=== PATIENT | female | born 1995 | race Two or more races ===

== ENCOUNTER 2018-05-12 15:23 | Emergency (ER) | payer OTHER ==
[~2018-05-12] VITALS: Ht 167.6 cm; Wt 82.8 kg
[2018-05-12] MEDS: ALBUTEROL SULFATE 2.5 MG/3 ML NEBU. NEB ONE (16:21)
[2018-05-12 16:23] LABS: BASO % 0 % (0-3); EOS # 0.2 x10^3/uL (0.0-0.7); EOS % 2 % (0-3); HEMATOCRIT 32.3 % (36.0-47.0); HEMOGLOBIN 10.9 g/dL (12.0-15.5); LYMPH # 1.6 x10^3/uL (1.0-4.8); LYMPH % 16 % (24-48); MEAN CORPUSCULAR HEMOGLOBIN 28 pg (25-35); MEAN CORPUSCULAR HGB CONC 34 g/dL (31-37); MEAN CORPUSCULAR VOLUME 83 fL (79-100); MONO # 0.7 x10^3/uL (0.0-1.1); MONO % 7 % (0-9); NEUT # 7.3 x10^3uL (1.8-7.7); NEUT % 75 % (31-73); PLATELET COUNT 403 x10^3/uL (140-400); RED BLOOD COUNT 3.89 x10^6/uL (3.50-5.40); RED CELL DISTRIBUTION WIDTH 14.5 % (11.5-14.5); WHITE BLOOD COUNT 9.7 x10^3/uL (4.0-11.0)
--- NOTE | 2018-05-12 16:28 | PHYS DOC ---
Past History Past Medical History: Asthma, Other Past Surgical History: No Surgical History Alcohol Use: None Drug Use: None Adult General Chief Complaint Chief Complaint: CHEST PAIN IN HPI HPI Patient is a 23 year old female who presents with complaining of chest pain. Patient is at 24 weeks of gestation and complaining of intermittent episodes of substernal chest pain for about 7 months before she even got . Patient states she gets episodes of substernal chest pain with radiation to right lateral chest as a constant sharp pain that last about one or 2 days and associated with shortness of breath and usually happen once a week or every other week. Patient was seen at [facility] for this chest pain and had unremarkable chest x-ray and was told this related to her asthma but patient believes that she has some other problem. She denies history of DVT and PE and lower extremity pain, fever and chills, vomiting and diarrhea. Patient states she mentioned about her chest pain to her [employer]CR[employer] and was told that is related to anemia. Review of Systems Review of Systems Constitutional: Denies fever or chills [] Eyes: Denies change in visual acuity, redness, or eye pain [] HENT: Denies nasal congestion or sore throat [] Respiratory: Reports shortness of breath [] Cardiovascular: No additional information not addressed in HPI [] GI: Denies abdominal pain, nausea, vomiting, bloody stools or diarrhea [] : Denies dysuria or hematuria [] Musculoskeletal: Denies back pain or joint pain [] Integument: Denies rash or skin lesions [] Neurologic: Denies headache, focal weakness or sensory changes [] Endocrine: Denies polyuria or polydipsia [] All other systems were reviewed and found to be within normal limits, except as documented in this note. Current Medications Current Medications Current Medications Medications (Trade) Dose Ordered Sig/Alberto Start Time Stop Time Status Last Admin Dose Admin Albuterol Sulfate (Ventolin) 2.5 mg 1X ONCE 05/12/18 16:00 05/12/18 16:02 DC 05/12/18 16:21 2.5 MG Allergies Allergies Allergies Coded Allergies Type Severity Reaction Last Updated Verified aspirin Allergy Unknown 05/12/18 Yes cinnamon Allergy Unknown 05/12/18 Yes pineapple Allergy Unknown 05/12/18 Yes Physical Exam Physical Exam Constitutional: Well developed, well nourished, mild distress, non-toxic appearance. [] HENT: Normocephalic, atraumatic, oropharynx moist, no oral exudates, nose normal. [] Eyes: PERRLA, EOMI, conjunctiva normal, no discharge. [] Neck: Normal range of motion, no tenderness, supple, no stridor. [] Cardiovascular:Heart rate regular rhythm, no murmur [] Lungs & Thorax: Bilateral breath sounds clear to auscultation [] Abdomen: Bowel sounds normal, soft, no tenderness, no masses, no pulsatile masses, gravid abdomen, heart rate 142, no tenderness. [] Skin: Warm, dry, no erythema, no rash. [] Back: No tenderness, no CVA tenderness. [] Extremities: No tenderness, no cyanosis, no clubbing, ROM intact, no edema. [] Neurologic: Alert and oriented X 3, normal motor function, normal sensory function, no focal deficits noted. [] Psychologic: Affect normal, judgement normal, mood normal. [] Current Patient Data Vital Signs Vital Signs Date Time Temp Pulse Resp B/P (MAP) Pulse Ox O2 Delivery O2 Flow Rate FiO2 05/12/18 15:36 98.8 91 18 99 Room Air Lab Results Laboratory Tests Test 05/12/18 16:04 White Blood Count 9.7 x10^3/uL (4.0-11.0) Red Blood Count 3.89 x10^6/uL (3.50-5.40) Hemoglobin 10.9 g/dL (12.0-15.5) L Hematocrit 32.3 % (36.0-47.0) L Mean Corpuscular Volume 83 fL (79-100) Mean Corpuscular Hemoglobin 28 pg (25-35) Mean Corpuscular Hemoglobin Concent 34 g/dL (31-37) Red Cell Distribution Width 14.5 % (11.5-14.5) Platelet Count 403 x10^3/uL (140-400) H Neutrophils (%) (Auto) 75 % (31-73) H Lymphocytes (%) (Auto) 16 % (24-48) L Monocytes (%) (Auto) 7 % (0-9) Eosinophils (%) (Auto) 2 % (0-3) Basophils (%) (Auto) 0 % (0-3) Neutrophils # (Auto) 7.3 x10^3uL (1.8-7.7) Lymphocytes # (Auto) 1.6 x10^3/uL (1.0-4.8) Monocytes # (Auto) 0.7 x10^3/uL (0.0-1.1) Eosinophils # (Auto) 0.2 x10^3/uL (0.0-0.7) Basophils # (Auto) 0.0 x10^3/uL (0.0-0.2) EKG EKG EKG interpreted by me. EKG at 1555 showed normal sinus rhythm at rate of 96, no acute ST and T-wave abnormalities.[] Radiology/Procedures Radiology/Procedures [] Impressions: MPRESSION: 1. Biliary sludge, possibly with a mild component of cholelithiasis. No sonographic evidence of acute cholecystitis. 2. The pancreas is obscured currently. Course & Med Decision Making Course & Med Decision Making Pertinent Labs and Imaging studies reviewed. (See chart for details) Evaluation of patient in ER showed 23-year-old female patient with complaining of episodes of sternal and right upper quadrant pain intermittently for several months and currently 24 weeks . She had elevation of liver function tests and gallbladder ultrasound is pending. Patient care transferred to Dr. Major at 1800. Ultrasound showed biliary sludge I discussed the finding with the patient advised her to follow up with general surgery she stated that she does not take anything for pain and she does not need anything for pain right now advised also to follow up with her [employer] Impression Chronic abdominal pain Biliary sludge Dragon Disclaimer Dragon Disclaimer This electronic medical record was generated, in whole or in part, using a voice recognition dictation system. Departure Departure: Impression: Primary Impression: Substernal pain Additional Impressions: Currently Elevated liver function tests Anemia Hypoalbuminemia Disposition: HOME, SELF-CARE Condition: GOOD Referrals: PCP,NO (PCP) Patient Instructions: Biliary Colic Problem Qualifiers ROSALINA JACKSON MD May 12, 2018 16:28 JUMANA THACKER MD May 12, 2018 18:58
[2018-05-12 16:46] LABS: ALBUMIN 2.7 g/dL (3.4-5.0); ALBUMIN/GLOBULIN RATIO 0.7 (1.0-1.7); CALCIUM 9.5 mg/dL (8.5-10.1); CREATININE 0.5 mg/dL (0.6-1.0); GFR 151.6; POTASSIUM 4.4 mmol/L (3.5-5.1); TOTAL BILIRUBIN 0.5 mg/dL (0.2-1.0); TOTAL PROTEIN 6.6 g/dL (6.4-8.2)
[2018-05-12 17:08] LABS: BILIRUBIN,URINE NEG (NEG); CLARITY,URINE CLOUDY; COLOR,URINE AMBER; GLUCOSE,URINE NEG (NEG); NITRITE,URINE POS (NEG); RBC,URINE 0 /HPF (0-2); UROBILINOGEN,URINE 0.2 mg/dL (0.2 mg/dL); WBC,URINE >40 /HPF (0-4)
[2018-05-12 17:09] LABS: BACTERIA,URINE MANY /HPF (0-FEW); SQUAMOUS EPITHELIAL CELL,UR MOD /LPF
[2018-05-12 17:13] LABS: BARBITURATES NEG (NEG); BENZODIAZEPINES NEG (NEG); CANNABINOIDS NEG (NEG); COCAINE NEG (NEG); METHADONE NEG (NEG); OPIATES NEG (NEG); PHENCYCLIDINE NEG (NEG)
[2018-05-12 17:14] LABS: AMPHETAMINE/METHAMPHETAMINE NEG (NEG)
--- NOTE | 2018-05-12 18:33 | RAD ---
EXAM: RIGHT UPPER QUADRANT ULTRASOUND. HISTORY: Right upper quadrant pain. COMPARISON: None. FINDINGS: Sonographic evaluation of the right upper quadrant was performed. The liver appears normal in parenchymal echotexture. There are no focal lesions. Echogenic nonshadowing material dependently in the gallbladder is consistent with sludge. Mild shadowing in the gallbladder neck suggests an additional component of small layering stones. There is no pericholecystic fluid or wall thickening. There is no sonographic Mitchell sign. The common duct measures 3 mm. The pancreas is obscured by bowel gas and overlying structures. The right kidney measures 10.6 cm. Cortical thickness and echogenicity are preserved. There is no hydronephrosis. The visualized portions of the abdominal aorta and inferior vena cava are grossly patent and normal in caliber. IMPRESSION: 1. Biliary sludge, possibly with a mild component of cholelithiasis. No sonographic evidence of acute cholecystitis. 2. The pancreas is obscured currently. Electronically signed by: Yokasta Vaughan MD (05/12/2018 6:30 PM) [facility]
[2018-05-12 18:50] VITALS: BP 115/79
--- NOTE | 2018-05-12 19:37 | EKG ---
[address] [address] Test Date: 2018-05-12 Test Time: 15:57:05 Pat Name: FLORI RODRIGUEZ Department: Room: Gender: F [employer] Intern: BETTY : 1995 Requested By: ROSALINA JACKSON Order Number: [id number] Reading MD: Measurements Intervals [place]isk Rate: 95 P: 0 WV: 120 QRS: 20 QRSD: 74 T: 12 QT: 320 QTc: 405 Interpretive Statements SINUS RHYTHM QRS(T) CONTOUR ABNORMALITY CONSIDER ANTEROSEPTAL MYOCARDIAL DAMAGE RI6.01 Unconfirmed report No previous ECG available for comparison
== END 2018-05-12 19:04 | disposition home or self-care (01) ==
LOC: ER 15:23
DX: O26.892 Other specified pregnancy related conditions, second trimester (principal); R07.2 Precordial pain; R79.89 Other specified abnormal findings of blood chemistry; O99.012 Anemia complicating pregnancy, second trimester; E88.09 Other disorders of plasma-protein metabolism, not elsewhere classified; O99.512 Diseases of the respiratory system complicating pregnancy, second trimester; J45.909 Unspecified asthma, uncomplicated; G89.29 Other chronic pain; Z3A.24 24 weeks gestation of pregnancy; Z88.6 Allergy status to analgesic agent; Z91.018 Allergy to other foods
CPT/HCPCS: 36415; 76705; 80053; 80307; 81001; 82550; 83690; 83880; 84484; 85025; 93005; 94640; 99285; J7613; 87086; G0479

== ENCOUNTER 2019-02-24 21:15 | Emergency (ER) | payer OTHER ==
[~2019-02-24] VITALS: Ht 167.6 cm; Wt 82.8 kg
--- NOTE | 2019-02-24 21:49 | PHYS DOC ---
Past History Past Medical History: Anemia, Asthma, Hypotension, Migraines, Other Past Surgical History: No Surgical History Alcohol Use: None Drug Use: None Adult General Chief Complaint Chief Complaint: HEADACHE HPI HPI Patient is a 23-year-old female who presents with complaint of headache, lower back pain, generalized weakness and dizziness that started earlier today. She states that the headache is primarily around her eyes on both sides. She describes as a lot of pressure. She denies any fever. She does admit some nausea but is had no vomiting. She rates the pain in her lower back is moderate.[] Review of Systems Review of Systems Constitutional: Denies fever or chills [] HENT: Positive sinus congestion and pain[] Respiratory: Denies cough or shortness of breath [] Cardiovascular: No additional information not addressed in HPI [] GI: Denies abdominal pain, vomiting or diarrhea [] : Denies dysuria or hematuria [] Musculoskeletal: Complains of lower back pain [] Neurologic: Complains of headache without focal weakness or sensory changes [] Allergies Allergies Allergies Coded Allergies Type Severity Reaction Last Updated Verified aspirin Allergy Unknown 05/12/18 Yes cinnamon Allergy Unknown 05/12/18 Yes pineapple Allergy Unknown 05/12/18 Yes Physical Exam Physical Exam Constitutional: Well developed, well nourished, no acute distress, non-toxic appearance. [] HENT: Normocephalic, atraumatic, bilateral external ears normal, oropharynx moist, both frontal and maxillary sinuses are tender to palpation and percussion bilaterally. [] Eyes: PERRLA, EOMI, conjunctiva normal, no discharge. [] Neck: Normal range of motion, no tenderness, supple, no stridor. [] Cardiovascular:Heart rate regular rhythm, no murmur [] Lungs & Thorax: Bilateral breath sounds clear to auscultation [] Abdomen: Bowel sounds normal, soft, no tenderness. [] Skin: Warm, dry, no erythema, no rash. [] Extremities: No tenderness, no cyanosis, no clubbing, ROM intact, no edema. [] Neurologic: Alert and oriented X 3, no focal deficits noted. [] Current Patient Data Vital Signs Vital Signs Date Time Temp Pulse Resp B/P (MAP) Pulse Ox O2 Delivery O2 Flow Rate FiO2 02/24/19 21:20 97.6 64 16 98 Room Air EKG EKG [] Radiology/Procedures Radiology/Procedures [] Course & Med Decision Making Course & Med Decision Making Pertinent Labs and Imaging studies reviewed. (See chart for details) [] Dragon Disclaimer Dragon Disclaimer This electronic medical record was generated, in whole or in part, using a voice recognition dictation system. Departure Departure: Impression: Primary Impression: UTI (urinary tract infection) Additional Impression: Sinusitis Disposition: HOME, SELF-CARE Condition: STABLE Referrals: SANDRA BHAKTA APRN (PCP) Patient Instructions: Sinusitis, Urinary Tract Infection Scripts Tramadol Hcl (TRAMADOL HCL) 50 Mg Tablet 50 MG PO PRN Q6HRS PRN for PAIN, #12 TAB Prov: JAVIER CEVALLOS Jr. DO 02/24/19 Sulfamethoxazole/Trimethoprim (BACTRIM DS TABLET) 1 Each Tablet 1 TAB PO BID for infection, #20 TAB Prov: JAVIER CEVALLOS Jr. DO 02/24/19 Problem Qualifiers Primary Impression: UTI (urinary tract infection) Urinary tract infection type: site unspecified Hematuria presence: without hematuria Qualified Codes: N39.0 - Urinary tract infection, site not specified Additional Impression: Sinusitis Sinusitis location: unspecified location Chronicity: acute Recurrence: not specified as recurrent Qualified Codes: J01.90 - Acute sinusitis, unspecified JAVIER CEVALLOS Jr. DO Feb 24, 2019 21:49
[2019-02-24 22:36] LABS: BASO # 0.1 x10^3/uL (0.0-0.2); BASO % 1 % (0-3); EOS # 0.5 x10^3/uL (0.0-0.7); EOS % 8 % (0-3); HEMATOCRIT 38.3 % (36.0-47.0); HEMOGLOBIN 12.2 g/dL (12.0-15.5); LYMPH # 2.4 x10^3/uL (1.0-4.8); LYMPH % 35 % (24-48); MEAN CORPUSCULAR HEMOGLOBIN 28 pg (25-35); MEAN CORPUSCULAR HGB CONC 32 g/dL (31-37); MEAN CORPUSCULAR VOLUME 86 fL (79-100); MONO # 0.7 x10^3/uL (0.0-1.1); MONO % 10 % (0-9); NEUT # 3.2 x10^3uL (1.8-7.7); NEUT % 47 % (31-73); PLATELET COUNT 382 x10^3/uL (140-400); RED BLOOD COUNT 4.44 x10^6/uL (3.50-5.40); RED CELL DISTRIBUTION WIDTH 14.1 % (11.5-14.5)
[2019-02-24] MEDS: KETOROLAC 30 MG/ML VIAL. IV ONE (22:39)
[2019-02-24] MEDS: IV NORMAL SALINE 1,000ML 1,000 ML IV SCH (22:39)
[2019-02-24] MEDS: ONDANSETRON PF 4 MG/2 ML VIAL. IV ONE (22:39)
[2019-02-24 22:46] LABS: COLOR,URINE YELLOW
[2019-02-24 22:47] LABS: BACTERIA,URINE MANY /HPF (0-FEW); BILIRUBIN,URINE NEG (NEG); CLARITY,URINE CLOUDY; GLUCOSE,URINE NEG (NEG); NITRITE,URINE POS (NEG); RBC,URINE OCC /HPF (0-2); SQUAMOUS EPITHELIAL CELL,UR OCC /LPF; UROBILINOGEN,URINE 0.2 mg/dL (0.2 mg/dL)
[2019-02-24 22:51] LABS: ALBUMIN 3.9 g/dL (3.4-5.0); CALCIUM 9.8 mg/dL (8.5-10.1); CREATININE 0.8 mg/dL (0.6-1.0); GFR 88.1; POTASSIUM 3.9 mmol/L (3.5-5.1); PREG TEST PT QUAL NEGATIVE (NEG); TOTAL BILIRUBIN 0.8 mg/dL (0.2-1.0); TOTAL PROTEIN 7.7 g/dL (6.4-8.2)
[2019-02-24] MEDS ORDERED: TRAM50TA PO (23:13)
[2019-02-24] MEDS ORDERED: SULF1TAB24 PO (23:13)
[2019-02-24 23:21] VITALS: BP 118/48
== END 2019-02-24 23:26 | disposition home or self-care (01) ==
LOC: ER 21:15
DX: N39.0 Urinary tract infection, site not specified (principal); J01.90 Acute sinusitis, unspecified; R42 Dizziness and giddiness; J45.909 Unspecified asthma, uncomplicated; G43.909 Migraine, unspecified, not intractable, without status migrainosus; Z86.2 Personal history of diseases of the blood and blood-forming organs and certain disorders involving the immune mechanism; Z91.018 Allergy to other foods; Z88.6 Allergy status to analgesic agent
CPT/HCPCS: 36415; 80053; 81001; 84703; 85025; 87086; 96361; 96374; 96375; 99284; J1885; J2405; J7030